=== PATIENT | male | born 1950 | race Caucasian/White ===

== ENCOUNTER → 2017-01-14 | Outpatient (CLI) | payer OTHER, MEDICARE ==
[~2017-01-14] MED LIST: REGADENOSON 0.4 MG/5 ML SYR IVP ONE
--- NOTE | 2017-01-14 23:17 | CPR ---
[f rep st] NONINVASIVE CARDIAC PROCEDURE REPORT DATE OF PROCEDURE: 01/14/2017 PROCEDURE: Lexiscan nuclear stress test. INDICATION: The patient is a 66-year-old male with history of atrial fibrillation status post Cryo b alloon ablation in September. Prior to and post ablation, he has complained of shortness of breath and palpitations at rest and with exertion. He presented to our office and a nuclear stress test was rec ommended by Dr. Shahab Cruz. The patient denies any history of hypertension, hyperlipidemia, ongoing tobacco use, or family history of premature coronary artery disease. He is prediabetic. PROCEDURE IN DETAIL: Consent was obtained. The patient was placed on continuous telemetry. His res ting EKG revealed a left atrial tachycardia versus atrial flutter, rate controlled. The patient was infused with Lexiscan and complained of a queasy feeling. He remained in left atrial tachycardia gwen jourdan atrial flutter throughout the procedure. His rates were adequately controlled through the proced ure, as well. PLAN: Await nuclear images. /[id number]/MODL
== END ==
LOC: FIMAGING 11:49
PROVIDERS: ATTEND Internal Medicine Cardiovascular Disease
DX: I49.9 Cardiac arrhythmia, unspecified (principal)
CPT/HCPCS: 78452; 93017; A9500; J2785

== ENCOUNTER → 2017-01-15 | Outpatient (CLI) | payer OTHER, MEDICARE | LOC: BHFA 11:30 | PROVIDERS: ATTEND Internal Medicine Cardiovascular Disease | DX: I48.91 Unspecified atrial fibrillation (principal) ==

== ENCOUNTER → 2017-12-19 | Outpatient (CLI) | payer OTHER, MEDICARE | LOC: BHFA 13:45 | PROVIDERS: ATTEND Internal Medicine Cardiovascular Disease | DX: I48.91 Unspecified atrial fibrillation (principal) ==

== ENCOUNTER → 2018-05-23 | Outpatient (CLI) | payer OTHER, MEDICARE | LOC: BHFA 11:30 | PROVIDERS: ATTEND Internal Medicine Cardiovascular Disease | DX: I48.91 Unspecified atrial fibrillation (principal); I34.0 Nonrheumatic mitral (valve) insufficiency; R06.02 Shortness of breath ==

== ENCOUNTER 2018-05-29 07:15 | Day surgery (SDC) | payer OTHER, MEDICARE ==
[2018-05-29] MEDS ORDERED: DIAZEPAM 5 MG TAB PO ONE (07:16)
[2018-05-29] MEDS ORDERED: NS 1,000 ML IV ONE (07:16)
[2018-05-29] MEDS ORDERED: FAMOTIDINE 20 MG TAB PO ONE (07:16)
[2018-05-29] MEDS ORDERED: diphenhydrAMINE 25 MG CAP PO ONE ×2 (07:16→07:47)
[2018-05-29] MEDS ORDERED: ASPIRIN EC 325 MG TAB PO ONE ×2 (07:16→07:47)
[2018-05-29] MEDS ORDERED: FAMOTIDINE 20 MG TAB ONE (07:47)
[2018-05-29] MEDS ORDERED: DIAZEPAM 5 MG TAB ONE (07:47)
[2018-05-29 07:58] LABS: PLATELET COUNT 147 10^3/uL (150-400)
[2018-05-29] MEDS ORDERED: IOPAMIDOL (ISOVUE-370) 150 ML BTL IV ONE (08:00)
[2018-05-29] MEDS ORDERED: fentaNYL 100 MCG/2 ML INJ ONE ×2 (08:00→08:59)
[2018-05-29] MEDS ORDERED: LIDOCAINE 1% 300 MG/30 ML SDV ONE (08:00)
[2018-05-29] MEDS ORDERED: MIDAZOLAM 2 MG/2 ML VIAL ONE ×2 (08:00→08:59)
[2018-05-29 08:06] LABS: INR 1.68 (0.83-1.16)
[2018-05-29] MEDS ORDERED: CLOPIDOGREL BISULFATE 75 MG TAB ONE (08:10)
--- NOTE | 2018-05-29 08:11 | PDHPUP ---
History & Physical Update H&P update statement: This history and physical update is based on an assessment of the patient which was completed after admission or registration (within 24 hours), but prior to the surgery/procedure. H&P update: H&P reviewed & patient examined, no change in patient's condition since H&P completed
--- NOTE | 2018-05-29 08:11 | PDPROPOC ---
Sedation Plan of Care Sedation Plan of Care: mental status noted, patient educated of risks, benefits , alternatives, patient can tolerate sedation ASA Classification: ASA 2 Planned drugs: fentanyl, midazolam Mallampati Score: Class 2 Mallampati Reference Image: Patient passed 3-3-2 rule?: Yes
[2018-05-29] MEDS ORDERED: CLOPIDOGREL BISULFATE 75 MG TAB PO ONE (08:30)
[2018-05-29] MEDS ORDERED: BIVALIRUDIN 250 MG/5 ML VIAL IV ONE (08:46)
[2018-05-29] MEDS ORDERED: ADENOSINE 90 MG/30 ML VIAL IV ONE (08:46)
[2018-05-29] MEDS ORDERED: ATROPINE SULFATE 1 MG/10 ML SYR IVP PRN (09:14)
[2018-05-29] MEDS ORDERED: NITROGLYCERIN 0.4 MG BTL SL PRN (09:14)
[2018-05-29] MEDS ORDERED: HYDROCODONE/APAP 5/325 TAB PO PRN (09:14)
[2018-05-29] MEDS ORDERED: ONDANSETRON 4 MG/2 ML VIAL IVP PRN (09:14)
[2018-05-29] MEDS ORDERED: OXYCODONE/APAP 5/325 TAB PO PRN (09:14)
--- NOTE | 2018-05-29 10:17 | CPIP ---
[f rep st] INVASIVE CARDIAC PROCEDURE DATE OF PROCEDURE: 05/29/2018 INDICATIONS FOR PROCEDURE: Chest pain, positive stress test. PROCEDURES: 1. Nonselective right groin sheathogram. 2. 7-[place] sheath, right common femoral vein. 3. Right heart catheterization with [place]-Amber catheter. 4. Bilateral coronary angiography. 5. Left heart catheterization. 6. Left ventriculogram. 7. Fractional flow reserve evaluation of ostial/proximal left anterior descending. HISTORY: Briefly, a 68-year-old male with history of AFib ablation with recent worsening dyspnea on exertion and chest pain. Patient had TMET performed as an outpatient, which was equivocal for ischem ia. However, the patient did have chest pain during exertion. He did fine. The patient consented f or right and left heart catheterization. DESCRIPTION OF PROCEDURE: After informed consent, the patient was brought to [facility], where the right gr oin was prepped and draped in sterile fashion. Using lidocaine, a short 6-[place] sheath in the right common femoral artery was verified angiographically. Through this, a 7-[place] sheath in the right c ommon femoral vein. [place]-Amber catheter was then advanced. Wedge pressure was mean of 12, A-wave 15, V-wave 15. PA pressure systolic 43, diastolic 15, mean of 27. RV pressure 47, diastolic 4, end of 4. RA pressure was mean of 10, A-wave 17, and V-wave 13. Cardiac output was measured to be 6.9, ind ex 3.4. AO sat was 93%. PA sat 76%. [place]-Amber catheter was then removed. A JL4 catheter was advan sebastian to left coronary artery. Images of left coronary artery revealed short left main. Left circumfl ex artery appeared to be widely patent with a large marginal 1 coming off proximally, a small margina l 2 artery, and then an AV groove circumflex which was healthy and free of disease. The ostial LAD h ad what appeared to be at least 30% to 40% calcific disease. Mid distal LAD appeared to be widely pa tent. There were small diagonal arteries coming off the LAD which were healthy and free of disease. After these images were obtained, the JL4 catheter was removed. A JR4 catheter was advanced to the right coronary artery. Images of the right coronary artery revealed normal ostial RCA, normal proxim al, mid and distal RCA. RPD and RPLS appeared to be widely patent. JR4 catheter was removed. [place] catheter was advanced to the left ventricle. EDP was 12 mmHg. Left ventriculogram in [facility] project ion showed EF of 65% with no wall motion abnormalities. No pullback gradient between the LAD or LV a nd the aorta. INTERVENTIONAL REPORT: At this time, given the ostial LAD disease as well as the patient's recent sy mptoms, we decided to proceed with further interrogation of this area. The patient was started on An giomax bolus drip with the administration of 600 mg of Plavix p.o. Utilizing an FFR wire which was c orrectly zeroed in the aorta, an EBU 3.5/6 guide catheter was advanced to the left coronary artery. The FFR wire was carefully manipulated down the LAD. FFR interrogation was then commenced. Baseline was 1.0. With adenosine infusion per [facility] FFR protocol, the FFR went from 1.0 to 0.92. This was con sistent and did not reduce in number any further than this. After 2 minutes, we decided the __ infusion would be terminated. The wire was pulled back. The angiogram was obtained, which showed patent flow through the left coronary system. Guide catheter was removed over 0.035 wire. Right gr oin was closed 6-[place] Angio-Seal, and the 7-[place] sheath was sutured in place. Patient tolerated the procedure well with no complications. IMPRESSION: 1. 30% to 40% ostial left anterior descending disease confirmed by fractional flow reserve as being noncritical. 2. Widely patent left circumflex and right coronary artery. 3. Normal ejection fraction. 4. Mild to moderate pulmonary hypertension. PLAN: The patient will be discharged later this morning. He will have a followup evaluation as an o utpatient with [facility] for further discussion about his potential recurrence of atrial fibri llation. /[id number]/MODL
--- NOTE | 2018-05-29 19:40 | CPEKG ---
Test Reason : OPEN Blood Pressure : / mmHG Vent. Rate : 065 BPM Atrial Rate : 065 BPM P-R Int : 161 ms QRS Dur : 105 ms QT Int : 417 ms P-R-T Axes : 051 081 009 degrees QTc Int : 434 ms Sinus rhythm Left posterior fasicular block Confirmed by Paul Hubbard ([id number]) on 05/29/2018 7:39:28 PM Referred By: Saqib Funez Confirmed By:Paul Hubbard
== END 2018-05-29 16:03 | disposition home or self-care (01) ==
LOC: FCATH 07:15
PROVIDERS: ATTEND Internal Medicine Cardiovascular Disease
PROC: 4A033BC Measurement of Arterial Pressure, Coronary, Percutaneous Approach (ICD-10-PCS; principal; 2018-05-29)
PROC: B2151ZZ Fluoroscopy of Left Heart using Low Osmolar Contrast (ICD-10-PCS; principal; 2018-05-29)
PROC: 4A023N8 Measurement of Cardiac Sampling and Pressure, Bilateral, Percutaneous Approach (ICD-10-PCS; principal; 2018-05-29)
PROC: B2111ZZ Fluoroscopy of Multiple Coronary Arteries using Low Osmolar Contrast (ICD-10-PCS; principal; 2018-05-29)
DX: R07.9 Chest pain, unspecified (principal); R94.39 Abnormal result of other cardiovascular function study; I27.20 Pulmonary hypertension, unspecified; I48.91 Unspecified atrial fibrillation; Z79.01 Long term (current) use of anticoagulants
CPT/HCPCS: 93005; 93460; 93571; C1769; C1887; C1760; J0153; J0583; J1644; J2250; J3010; Q9967

== ENCOUNTER → 2018-06-10 | Outpatient (CLI) | payer OTHER, MEDICARE | LOC: BHFA 11:30 | PROVIDERS: ATTEND Internal Medicine Interventional Cardiology | DX: I34.0 Nonrheumatic mitral (valve) insufficiency (principal) ==